=== PATIENT | male | born 1995 | race Caucasian/White ===

== ENCOUNTER 2017-05-11 15:29 | Emergency (ER) | payer OTHER ==
[~2017-05-11] VITALS: Ht 180.3 cm; Wt 74.0 kg
[~2017-05-11 15:29] MED LIST: AUGM875T PO; MMW SWISH-SPIT; PRED20 PO
[2017-05-11 15:38] VITALS: BP 124/55; PULSE 105; RESP 18; TEMP 98.5; O2SAT 100
[2017-05-11] MEDS ORDERED: PIPERACIL-TAZO 4.5 GM PREMIX 100 ML IV STA (16:34)
[2017-05-11] MEDS ORDERED: VANCOMYCIN INJ 1,000 MG in SODIUM CHLOR 0.9% 250 ML INJ 250 ML IV STA (16:34)
[2017-05-11] MEDS ORDERED: KETOROLAC TROMETHAMINE 30 MG/ML (IVP) VIAL IV PUSH ONE (16:45)
[2017-05-11] MEDS ORDERED: MORPHINE SULFATE 4 MG/ML INJ IV PUSH ONE (16:45)
[2017-05-11] MEDS ORDERED: ONDANSETRON HCL 4 MG/2 ML VIAL IV PUSH ONE (16:45)
[2017-05-11] MEDS ORDERED: SODIUM CHLOR 0.9% 1000 ML INJ 1,000 ML IV ONE ×2 (16:45)
--- NOTE | 2017-05-11 16:56 | PD ---
HPI Chief Complaint: Facial Pain or Swelling Time Seen by Provider: 16:30 Travel History International Travel<30 days: No Contact w/Intl Traveler<30days: No Traveled to known affect area: No History of Present Illness HPI PATIENT STATES HISTORY OF RIGHT DENTAL (MANDIBULAR) INFECTIONS, AND 4 DAYS AGO STARTED WITH PAIN AND A SMALL LUMP TO CHEEK....2 DAYS AGO SWELLING TO RIGHT SIDE OF NECK AND REDNESS WELL PAINFUL....PAIN, SHARP, 9/10, WORSE WITH TOUCHING. ALL:NKDA PMHX: DENIES PSHX:DENIES PFSH Past Medical History Depression: Yes Diminished Hearing: No Immunizations Current: Yes Schizophrenia: Yes Influenza Vaccination: No Social History Alcohol Use: Yes (OCC) Tobacco Use: No (QUIT04/2014) Substance Use: Yes (K2) Allergies-Medications (Allergen,Severity, Reaction): Coded Allergies: No Known Allergies (Verified Adverse Reaction, Unknown, 05/11/17) Reported Meds & Prescriptions Reported Meds & Active Scripts Active Review of Systems Except as stated in HPI: all other systems reviewed are Neg General / Constitutional: Positive: Fever, Chills Eyes: No: Visual changes HENT: Positive: Neck Pain (RIGHT SIDE OF NECK WITH SWELLING) Cardiovascular: No: Chest Pain or Discomfort Respiratory: No: Shortness of Breath Gastrointestinal: No: Abdominal Pain Genitourinary: No: Dysuria Musculoskeletal: No: Pain Skin: Positive Other (cellulitic changes to right neck) Neurologic: No: Weakness Psychiatric: No: Depression Endocrine: No: Polydipsia Hematologic/Lymphatic: No: Easy Bruising Physical Exam Narrative GENERAL: SKIN: Warm and dry....ERYTHEMA AND EDEMA TO RIGHT LATERAL SIDE OF NECK, WARMTH TO TOUCH. HEAD: Atraumatic. Normocephalic. EYES: Pupils equal and round. No scleral icterus. No injection or drainage. ENT: No nasal bleeding or discharge. Mucous membranes pink and moist. NECK: Trachea midline. No JVD. NO LAD, NO STRIDOR, NO WHEEZING, NO RESP DISTRESS CARDIOVASCULAR: Regular rate and rhythm. NO MURMUR RESPIRATORY: No accessory muscle use. Clear to auscultation. Breath sounds equal bilaterally. GASTROINTESTINAL: Abdomen soft, non-tender, nondistended. MUSCULOSKELETAL: Extremities without clubbing, cyanosis, or edema. No obvious deformities. NEUROLOGICAL: Awake and alert. No obvious cranial nerve deficits. Motor grossly within normal limits. Five out of 5 muscle strength in the arms and legs. Normal speech. PSYCHIATRIC: Appropriate mood and affect; insight and judgment normal. Head 1 - Other (SMALL NICKEL DIAMETER LUMP, NONFLUCTUANT, NO STREAKING, NO CELLULITIS ) 2 - Cellulitis (INDURATED OVER ANTERIOR SCM, EXTENDING FROM ANGLE OF MANDIBLE DOWN TO NEAR CLAVICLE, NO STREAKING, NO FLUCTUANCE, ) Data Data Last Documented VS Orders Orders Sepsis Workup Initiated (05/11/17 ) Blood Glucose (05/11/17 16:34) Ecg Monitoring (05/11/17 16:34) Iv Access Insert/Monitor (05/11/17 16:34) Oximetry (05/11/17 16:34) Oxygen Administration (05/11/17 16:34) Piperacil-Tazo 4.5 Gm Premix (Zosyn 4.5 (05/11/17 16:34) Vancomycin Inj (Vancomycin Inj) (05/11/17 16:34) Sodium Chlor 0.9% 1000 Ml Inj (Ns 1000 M (05/11/17 16:45) Sodium Chlor 0.9% 1000 Ml Inj (Ns 1000 M (05/11/17 16:45) Ketorolac Inj (Toradol Inj) (05/11/17 16:45) Morphine Inj (Morphine Inj) (05/11/17 16:45) Ondansetron Inj (Zofran Inj) (05/11/17 16:45) MDM Medical Decision Making Medical Screen Exam Complete: Yes Emergency Medical Condition: Yes Medical Record Reviewed: Yes Differential Diagnosis CELLULITIS V EXTENSION OF DENTAL ABSCESS V NECK ABSCESS Narrative Course WHILE I WAS EXPLAINING THE NEED FOR IV ABX AND CT NECK TO ASSESS DEPTH OF INFECTION, I EXPLAINED THE NEED FOR ADMISSION...AT WHICH TIME PATIENT BECAME UPSET AND STATED THAT HE WAS NOT GOING TO STAY AND THAT HE WON'T EVEN STAY FOR THE ED TREATMENT...AT THIS POINT MOTHER BECAME UPSET AND TRIED TO CONVINCE PATIENT TO STAY WHICH I DID WELL.... I EVEN PLEADED FOR THE PATIENT TO AT LEAST GET IM CLINDAMYCIN EVEN IF HE DIDN'T WANT TO STAY FOR CAT SCAN OR ADMISSION...PATIENT DECLINED AND DID NOT WANT ANY FURTHER TREATMENT...ALL ATTEMPTS MADE TO REASON WITH PATIENT BY MYSELF, NURSE TIDWELL AND HIS OWN MOTHER. PATIENT HAS MENTAL CAPACITY TO MAKE HIS OWN DECISION EVEN IF THEY ARE POOR DECISIONS. Diagnosis Primary Impression: Cellulitis of neck Additional Impression: AMA Patient Instructions: Against Medical Advice (ED), General Instructions Scripts No Active Prescriptions or Reported Meds Disposition: 07 AGAINST MEDICAL ADVICE Prabhakar Mark MD May 11, 2017 16:56
== END 2017-05-11 17:07 | disposition left against medical advice (07) ==
LOC: PHED 15:29
DX: L03.221 Cellulitis of neck (principal); Z53.21 Procedure and treatment not carried out due to patient leaving prior to being seen by health care provider
CPT/HCPCS: 99281